=== PATIENT | female | born 1960 | race Two or more races ===

== ENCOUNTER 2022-12-25 17:57 | Emergency (ER) | payer BC, OTHER ==
[~2022-12-25] VITALS: Ht 170.2 cm; Wt 111.7 kg
[2022-12-25] MEDS ORDERED: CEPH250C PO (18:47)
[2022-12-25] MEDS ORDERED: ACET500T58 PO (18:47)
[2022-12-25] MEDS ORDERED: IBUP-1454 PO (18:47)
[2022-12-25 18:53] VITALS: BP 136/84; PULSE 74; RESP 17; TEMP 98.2; O2SAT 92
== END 2022-12-25 18:57 | disposition home or self-care (01) ==
LOC: ER 17:57
DX: S61.012A Laceration without foreign body of left thumb without damage to nail, initial encounter (principal); W45.8XXA Other foreign body or object entering through skin, initial encounter; Y93.89 Activity, other specified; Y92.89 Other specified places as the place of occurrence of the external cause; Y99.8 Other external cause status
CPT/HCPCS: 12001

== ENCOUNTER 2024-10-05 20:10 | Emergency (ER) | payer BC ==
[~2024-10-05] VITALS: Ht 167.6 cm; Wt 101.9 kg
[~2024-10-05 20:10] MED LIST: ACET500T58 PO; CEPH250C PO; EMPA1TAB PO; FURO1TAB33 PO; IBUP-1454 PO; MET25T PO; POTA-180 PO; SACU1TAB PO; SPIR25TA PO
--- NOTE | 2024-10-05 20:35 | ED.PDOC ---
History of Present Illness HPI Comments 64F presents to the ER w/ prior MHx of CHF and the c/c of an allegic reaction. Pt reports that she had a Shingles Vaccine yesterday and the pt having a fever last night. Denies chills, N/V/D, SOB, CP or other associated symptom's, modifiers, or recent injuries or sick contact at this time. Vital signs were stable at arrival. Chief Complaint: Allergic Reaction Time Seen by MD: 20:20 Primary Care Provider: "I DON'T KNOW THE NAME" Reviewed Notes: Nurses Notes, Medications, Allergies Allergies: Coded Allergies: NO KNOWN ALLERGIES (Unverified , 12/25/22) Home Meds Active Scripts Potassium Chloride (Potassium Chloride ER) 20 Meq Tab, 20 MEQ PO ONCE for 90 Days, TAB Prov:SEBASTIAN BLOOM RESIDENT 10/24/23 Furosemide (Lasix) 20 Mg Tb, 1 TAB PO DAILY for 90 Days, #90 TAB 1 Refill Prov:SEBASTIAN BLOOM 10/24/23 Spironolactone (Aldactone) 25 Mg Tab, 25 MG PO DAILY for 90 Days, #90 TAB Prov:SEBASTIAN BLOOM 10/24/23 Sacubitril-Valsartan (Entresto 24-26 mg) 1 Tab Tab, 1 TAB PO BID for 90 Days, #180 TAB Prov:SEBASTIAN BLOOM 10/24/23 Metoprolol Tartrate (Lopressor) 25 Mg Tb, 12.5 MG PO BID for 90 Days, #90 TAB Prov:SEBASTIAN BLOOM 10/24/23 Empagliflozin (Jardiance) 10 Mg Tab, 10 MG PO DAILY for 90 Days, #90 TAB Prov:SEBASTIAN BLOOM RESIDENT 10/24/23 Ibuprofen (Ibuprofen) 600 Mg Tab, 1 TAB PO TID, #30 TAB Prov:VIKI APPLE PAC 12/25/22 Acetaminophen (Acetaminophen) 500 Mg Tab, 500 MG PO Q4HP PRN, #30 TAB Prov:VIKI APPLE PAC 12/25/22 Cephalexin (KEFLEX CAPSULE) 250 Mg Cp, 1 CAP PO QID for 7 Days, #28 CAP Prov:VIKI APPLE PAC 12/25/22 Information Source: Patient Mode of Arrival: Ambulatory Severity: Moderate Timing: Hours Duration: Since onset, Hours Prehospital treatment: None Past Medical History PAST MEDICAL HISTORY: CHF Surgical History: Denies all surgeries [employer]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 [employer]ILE[employer] OPERATOR History Family History Family History: Reviewed,noncontributory to illness, Unknown Social History Smoker: Non-Smoker Alcohol: Denies ETOH Use Drugs: Denies Drug Use Lives In: Home Constitutional: reports: fever; denies: chills, diaphoresis, fatigue, malaise, sweats, weakness, others EENTM: denies: blurred vision, double vision, ear bleeding, ear discharge, ear drainage, ear pain, ear ringing, eye pain, eye redness, hearing loss, mouth pain, mouth swelling, nasal discharge, nose bleeding, nose congestion, nose pain, photophobia, tearing, throat pain, throat swelling, voice changes, others Respiratory: denies: cough, hemoptysis, orthopnea, SOB at rest, shortness of breath, SOB with excertion, stridor, wheezing, others Cardiovascular: denies: chest pain, dizzy spells, diaphoresis, Dyspnea on exertion, edema, irregular heart beat, left arm pain, lightheadedness, palpitations, PND, syncope, others Gastrointestinal: denies: abdomen distended, abdominal pain, blood streaked bowels, constipated, diarrhea, dysphagia, difficulty swallowing, hematemesis, melena, nausea, poor appetite, poor fluid intake, rectal bleeding, rectal pain, vomiting, others Genitourinary: denies: abnormal vagina bleeding, burning, dyspareunia, dysuria, flank pain, frequency, hematuria, incontinence, pain, , vagina discharge, urgency, others Neurological: denies: dizziness, fainting, headache, left sided numbness, left sided weakness, numbness, paresthesia, pre-existing deficit, right sided numbness, right sided weakness, seizure, speech problems, tingling, tremors, weakness, others Musculoskeletal: denies: back pain, gout, joint pain, joint swelling, muscle pain, muscle stiffness, neck pain, others Integumetry: denies: bruises, change in color, change in hair/nails, dryness, laceration, lesions, lumps, rash, wounds, others Allergic/Immunocompromised: denies: Difficulty Healing, Frequent Infections, Hives, Itching, others Hematologic/Lymphatic: denies: anemia, blood clots, easy bleeding, easy bruising, swollen glands, others Endocrine: denies: excessive hunger, excessive sweating, excessive thirst, excessive urination, flushing, intolerance to cold, intolerance to heat, unexplained weight gain, unexplained weight loss, others Psychiatric: denies: anxiety, bipolar disorder, depression, hopeless, panic disorder, schizophrenia, sleepless, suicidal, others All Other Systems: Reviewed and Negative Physical Exam General Appearance: Mild Distress (Patient appears mildly uncomfortable due to itchiness.), Normal HEENT: Normal ENT Inspection, Pharynx Normal, TMs Normal Neck: Full Range of Motion, Non-Tender, Normal, Normal Inspection Respiratory: Chest Non-Tender, Lungs Clear, No Accessory Muscle Use, No Respiratory Distress, Normal Breath Sounds Cardiovascular: No Edema, No JVD, No Murmur, No Gallop, Normal Peripheral Pulses, Regular Rate/Rhythm Breast Exam: Deferred Gastrointestinal: No Organomegaly, Non Tender, No Pulsatile Mass, Normal Bowel Sounds, Soft Genitalia: Deferred Pelvic: Deferred Rectal: Deferred Extremities: No calf tenderness, Normal capillary refill, Normal inspection, Normal range of motion, Non-tender, No pedal edema Musculoskeletal : Apperance: Normal Neurologic: Alert, No Motor Deficits, Normal Affect, Normal Mood, No Sensory Deficits Cerebellar Function: Normal Reflexes: Normal Skin: Dry, Normal Color, Warm Lymphatic: No Adenopathy Was a procedure done? Was a procedure done?: No Differential Dx Considerations may include: Allergic reaction to medication, allergies X-Ray, Labs, Meds, VS Vital Signs Date Time Temp Pulse Resp B/P (MAP) Pulse Ox O2 Delivery O2 Flow Rate FiO2 10/05/24 22:48 98.2 99 14 136/88 (104) 92 98.2 10/05/24 20:21 98.7 97 16 127/83 (98) 93 98.7 10/05/24 20:21 16 93 Room Air* 0 21 X-Ray, Labs, Meds, VS Comment Patient was at the facility for some time prior to medication being dispensed. Patient stated she did not want any medications and would like to go home. Patient will be provided with a discharge. Time of 1ST Reevaluation: 23:06 Reevaluation 1ST: Unchanged Consultation: PCP Patient Education/Counseling: Diagnosis, Treatment, Prognosis Family Education/Counseling: Diagnosis, Treatment, No Family Present Departure 1 Departure Time of Disposition: 23:06 Impression: Primary Impression: Allergic reaction caused by a drug Disposition: 01 HOME / SELF CARE / HOMELESS Condition: Stable Additional Instructions: Advised patient to follow up with the primary care provider for discussions related to today's visit. Discharged With: Self Critical Care Note Critical Care Time?: No Stability Stability form required: No Heart Score Heart Score: Heart Score Response (Comments) Value History N/A 0 EKG N/A 0 Age N/A 0 Risk Factors N/A 0 Troponin N/A 0 Total 0 I personally scribed for VIKI APPLE PAC ([email or web address]) on 10/05/24 at 20:35. Electronically submitted by Stephen Mabry ([email or web address]). VIKI APPLE PAC October 05, 2024 20:35
[2024-10-05 22:48] VITALS: BP 136/88; PULSE 99; RESP 14; TEMP 98.2; O2SAT 92
[2024-10-05] MEDS: diphenhdrAMINE HCL 25 MG CAP PO ONE (23:03)
[2024-10-05] MEDS: DexAMETHasone SOD PHOS 10MG/1ML VIAL INJ IM ONE (23:03)
== END 2024-10-05 23:25 | disposition home or self-care (01) ==
LOC: ER 20:10
DX: R50.9 Fever, unspecified (principal); T50.905A Adverse effect of unspecified drugs, medicaments and biological substances, initial encounter; I50.9 Heart failure, unspecified; Z79.899 Other long term (current) drug therapy; Z79.84 Long term (current) use of oral hypoglycemic drugs; Z79.1 Long term (current) use of non-steroidal anti-inflammatories (NSAID); Y92.89 Other specified places as the place of occurrence of the external cause